=== PATIENT | male | born 1950 | race African-American/Black ===

== ENCOUNTER 2018-06-21 17:34 | Emergency (ER) | payer MEDICARE, MEDICAID ==
--- NOTE | 2018-06-21 21:01 | RAD ---
LEFT FIFTH DIGIT: 06/21/2018 FINDINGS: No acute fracture or dislocation is seen. The joints appear normal for age. IMPRESSION: No acute finding. POS: HOME
== END 2018-06-21 19:03 | disposition home or self-care (01) ==
LOC: BURERS 17:34
DX: S62.637A Displaced fracture of distal phalanx of left little finger, initial encounter for closed fracture (principal); F17.210 Nicotine dependence, cigarettes, uncomplicated; X58.XXXA Exposure to other specified factors, initial encounter

== ENCOUNTER 2018-07-29 14:31 | Emergency (ER) | payer MEDICARE, MEDICAID ==
[2018-07-29 15:07] LABS: Clarity Clear (Clear); Glucose, Urine (Dipstick) Negative (Negative); Leukocyte Negative (Negative); Nitrite Negative (Negative); Protein, Urine (Dipstick) Negative (Neg-Trace)
[2018-07-29] MEDS ORDERED: Enoxaparin Sodium 100 MG/ML SYRINGE ONE (15:07)
[2018-07-29 15:08] LABS: Bilirubin Negative (Negative); Blood, Urine Negative (Negative)
[2018-07-29] MEDS ORDERED: HYDROcodone/Acetaminophen 5/325 mg Tablet ONE (15:16)
[2018-07-29] MEDS ORDERED: Fluorescein Opthalmic Strip ONE (19:24)
== END 2018-07-29 15:18 | disposition home or self-care (01) ==
LOC: BURERS 14:31
DX: I74.3 Embolism and thrombosis of arteries of the lower extremities (principal); I10 Essential (primary) hypertension; F17.210 Nicotine dependence, cigarettes, uncomplicated; Z79.899 Other long term (current) drug therapy
CPT/HCPCS: 81003; 96372; J1650; J2001

== ENCOUNTER 2021-01-25 10:48 | Inpatient (IN) | payer MEDICARE, MEDICAID ==
[2021-01-25] MEDS ORDERED: Acetaminophen 325 MG TAB PO PRN (18:36)
[2021-01-25] MEDS: Gabapentin 100 MG CAP PO SCH (20:31)
[2021-01-25] MEDS: HYDROcodone/Acetaminophen 10/325 mg Tablet PO PRN (20:33)
[2021-01-25] MEDS: Sodium Bicarbonate Tab 325 MG TAB PO SCH (20:34)
[2021-01-25] MEDS: Propranolol HCl 20 MG TAB PO SCH (20:34)
[2021-01-25] MEDS: Atorvastatin Calcium 40 MG TAB PO SCH (20:35)
[2021-01-26] MEDS: HYDROcodone/Acetaminophen 10/325 mg Tablet PO PRN ×2 (03:53→16:58)
[2021-01-26 05:38] LABS: Anion Gap 14 mmol/L (10-20); BUN (Urea Nitrogen) 15 mg/dL (8.4-25.7); Calc. Creatinine Clearance 57 mL/min (70-130); Carbon Dioxide 24 mmol/L (23-31); Chloride 103 mmol/L (98-107); Glucose 98 mg/dL (83-110); Potassium 3.8 mmol/L (3.5-5.1); Sodium 137 mmol/L (136-145)
[2021-01-26 05:41] LABS: #Basophils 0.1 thou/uL (0.0-0.2); #Eosinphils 0.1 thou/uL (0.0-0.7); #Monocytes 0.9 thou/uL (0.11-0.59); #Neutrophils 3.5 thou/uL (1.40-6.50); %Basophils 1.2 % (0.0-1.0); %Lymphocytes 39.7 % (21.0-51.0); Hemoglobin 7.5 g/dL (14.0-18.0); Mean Corpuscular Hemoglobin 28.9 pg (27.0-31.0); Mean Corpuscular Volume 90.4 fL (78.0-98.0); Mean Platelet Volume 7.9 fL (7.4-10.4); Platelet Count 82 thou/uL (130-400); RBC Distribution Width 18.2 % (11.5-14.5); White Blood Cell (WBC) Count 7.6 thou/uL (4.8-10.8)
[2021-01-26 06:16] LABS: Anisocytosis SLIGHT = 6-15 cells (100X) (0-5/hpf); MDiff Complete? YES; Platelet Morphology Comment Appears Decreased
[2021-01-26] MEDS ORDERED: FLU VACC QS2020-21(65YR UP)/PF 240 MCG/0.7 ML SYRINGE IM ONE (09:00)
[2021-01-26] MEDS: Gabapentin 100 MG CAP PO SCH ×3 (09:14→20:35)
[2021-01-26] MEDS: Nicotine 14 MG PATCH TD SCH (09:15)
[2021-01-26] MEDS: Thiamine 100 MG TAB PO SCH (09:16)
[2021-01-26] MEDS: Sodium Bicarbonate Tab 325 MG TAB PO SCH ×2 (09:16→20:36)
[2021-01-26] MEDS: Spironolactone 25 MG TAB PO SCH (09:16)
[2021-01-26] MEDS: Propranolol HCl 20 MG TAB PO SCH ×2 (09:16→20:36)
[2021-01-26] MEDS: Torsemide 20 MG TAB PO SCH (09:17)
[2021-01-26] MEDS: Ferrous Sulfate 325 MG TAB PO SCH ×2 (09:18→17:00)
[2021-01-26] MEDS: Folic Acid 1 MG TAB PO SCH (09:18)
[2021-01-26] MEDS: Atorvastatin Calcium 40 MG TAB PO SCH (20:36)
[2021-01-27 05:11] VITALS: BP 139/66
[2021-01-27 05:40] VITALS: TEMP 97
[2021-01-27] MEDS: Ferrous Sulfate 325 MG TAB PO SCH (09:37)
[2021-01-27] MEDS: Torsemide 20 MG TAB PO SCH (09:37)
[2021-01-27] MEDS: Sodium Bicarbonate Tab 325 MG TAB PO SCH (09:38)
[2021-01-27] MEDS: Spironolactone 25 MG TAB PO SCH (09:38)
[2021-01-27] MEDS: Folic Acid 1 MG TAB PO SCH (09:39)
[2021-01-27] MEDS: Propranolol HCl 20 MG TAB PO SCH (09:39)
[2021-01-27] MEDS: Thiamine 100 MG TAB PO SCH (09:39)
[2021-01-27] MEDS: Gabapentin 100 MG CAP PO SCH (09:40)
[2021-01-27] MEDS: Nicotine 14 MG PATCH TD SCH ×2 (09:41→09:55)
[2021-01-27] MEDS: HYDROcodone/Acetaminophen 10/325 mg Tablet PO PRN (09:50)
== END 2021-01-27 14:55 | disposition short-term general hospital (02) | DRG 871 ==
LOC: BURMED 16:28
PROVIDERS: ADMIT Family Medicine; ATTEND Family Medicine
DX: A41.9 Sepsis, unspecified organism (principal); R65.21 Severe sepsis with septic shock; G93.41 Metabolic encephalopathy; G93.40 Encephalopathy, unspecified; K51.00 Ulcerative (chronic) pancolitis without complications; I13.0 Hypertensive heart and chronic kidney disease with heart failure and stage 1 through stage 4 chronic kidney disease, or unspecified chronic kidney disease; D68.9 Coagulation defect, unspecified; K76.6 Portal hypertension; Z88.8 Allergy status to other drugs, medicaments and biological substances; I25.10 Atherosclerotic heart disease of native coronary artery without angina pectoris; I50.9 Heart failure, unspecified; Z95.5 Presence of coronary angioplasty implant and graft; F17.210 Nicotine dependence, cigarettes, uncomplicated; D64.9 Anemia, unspecified; N18.32 Chronic kidney disease, stage 3b; Z86.19 Personal history of other infectious and parasitic diseases; K31.89 Other diseases of stomach and duodenum; K70.30 Alcoholic cirrhosis of liver without ascites
CPT/HCPCS: 36415; 80048; 85025